=== PATIENT | female | born 1995 | race Caucasian/White ===

== ENCOUNTER 2016-12-01 11:28 | Inpatient (IN) | payer MEDICAID ==
[~2016-12-01] VITALS: Ht 162.6 cm; Wt 47.8 kg
[2016-12-01] MEDS ORDERED: SODIUM CHLORIDE 0.9% 1,000 ML IVB ONE (12:08)
[2016-12-01] MEDS ORDERED: cefTRIAXone 1GM/50ML D5W 50 ML IV ONE (12:15)
[2016-12-01] MEDS ORDERED: KETOROLAC TROMETH 30 MG/ML 1ML VIAL IV ONE (12:15)
[2016-12-01 12:33] LABS: Urine RBC None Seen /hpf (0 - 4)
[2016-12-01 12:45] LABS: Urine Bilirubin Negative (Negative); Urine Blood Negative /uL (Negative); Urine Color Yellow (Yellow); Urine Glucose Normal (Normal); Urine Ketone Negative (Negative); Urine Mucus FEW (None Seen); Urine Nitrite Negative (Negative); Urine Squamous Epithelial Cell FEW /hpf (<5); Urine Urobilinogen Normal (Negative)
[2016-12-01 13:09] LABS: Basophils # (auto) 0.1 uL; Eosinophils # (auto) 0.1 uL; Eosinophils % (auto) 1.8 % (0.0-7.0); Hematocrit 38.3 % (36.0-46.0); Hemoglobin 11.9 g/dL (12.2-16.2); Lymphocytes # (auto) 2.6 uL; Lymphocytes % (auto) 37.2 % (10.0-50.0); Mean Corpuscular Hemoglobin 27.2 pg (28.0-32.0); Mean Corpuscular Hgb Conc. 31.1 g/dL (32.0-36.0); Mean Corpuscular Volume 87.6 fL (80.0-100.0); Monocytes # (auto) 0.4 uL; Monocytes % (auto) 5.9 % (0.0-12.0); Neutrophils # (auto) 3.7 uL; Neutrophils % (auto) 54.1 % (37.0-80.0); Platelet Count (auto) 448 10^3/uL (140-450); Red Cell Distribution Width 12.9 % (11.6-16.0); White Blood Cell 6.9 10^3/uL (4.4-10.8)
[2016-12-01 13:20] LABS: Albumin 3.2 g/dL (3.4-5.0); Alkaline Phosphatase 106 U/L (45-117); Anion Gap 7 (5-15); Aspartate Aminotransferase 21 U/L (15-37); BUN/Creatinine Ratio 19.3; Bilirubin, Total < 0.1 mg/dL (0.2-1.0); Blood Urea Nitrogen 11 mg/dL (7-18); Carbon Dioxide 27 mmol/L (21-32); Chloride 106 mmol/L (98-107); GFR African American 171 mL/min; GFR Non-African American 141 mL/min; Glucose 82 mg/dL (74-106); INR 0.95 (0.9-1.15); Magnesium 2.7 mg/dL (1.6-2.6); Partial Thromboplastin Time 33.6 sec (22.64-33.71); Potassium 3.8 mmol/L (3.5-5.1); Prothrombin Time 9.8 sec (9.37-12.3); Sodium 140 mmol/L (136-145); Total Protein 7.8 g/dL (6.4-8.2)
[2016-12-01] MEDS ORDERED: HYDROcodone-ACET 10/325MG TAB PO ONE (13:45)
[2016-12-01] MEDS ORDERED: CLINDAMYCIN 300MG IV 50 ML IV ONE (14:15)
[2016-12-01] MEDS ORDERED: TEMAZEPAM 15 MG CAP PO PRN (14:30)
[2016-12-01] MEDS ORDERED: ONDANSETRON HCL 4 MG/2 ML VIAL IV PRN (14:30)
[2016-12-01] MEDS ORDERED: DOCUSATE SOD 100 MG CAP PO PRN (14:30)
[2016-12-01] MEDS ORDERED: ACETAMINOPHEN 325 MG TAB PO PRN (14:30)
[2016-12-01] MEDS: MULTIPLE VITAMIN TAB PO SCH (14:43)
[2016-12-01] MEDS: ZINC SULFATE 220 MG CAP PO SCH (14:43)
[2016-12-01 16:51] VITALS: BP 134/91
[2016-12-01 20:00] VITALS: BP 103/59
[2016-12-01] MEDS: SODIUM CHLOR 0.9% PF (SALINE LOCK) 10ML VIAL IV SCH (21:36)
[2016-12-01] MEDS: CLINDAMYCIN 300MG IV 50 ML IV SCH (21:36)
[2016-12-01] MEDS: ASCORBIC ACID 500 MG TAB PO SCH (21:36)
[2016-12-01 21:40] VITALS: BP 103/59
[2016-12-01] MEDS ORDERED: ALPR1TAB2 PO (22:53)
[2016-12-01] MEDS ORDERED: NOR5T PO (22:53)
[2016-12-02 05:16] VITALS: BP 104/59
[2016-12-02] MEDS: MORPHINE SULF INJ 2 MG/ML SYRINGE 1ML IV PRN ×3 (05:34→22:29)
[2016-12-02] MEDS: CLINDAMYCIN 300MG IV 50 ML IV SCH ×3 (05:41→22:07)
[2016-12-02] MEDS: SODIUM CHLOR 0.9% PF (SALINE LOCK) 10ML VIAL IV SCH ×3 (05:41→22:07)
[2016-12-02 06:36] LABS: Basophils # (auto) 0 uL; Basophils % (auto) 0.6 % (0.0-2.0); Eosinophils # (auto) 0.2 uL; Eosinophils % (auto) 2.6 % (0.0-7.0); Hematocrit 37.9 % (36.0-46.0); Lymphocytes # (auto) 2.4 uL; Lymphocytes % (auto) 41.3 % (10.0-50.0); Mean Corpuscular Hemoglobin 27.8 pg (28.0-32.0); Mean Corpuscular Hgb Conc. 31.7 g/dL (32.0-36.0); Mean Corpuscular Volume 87.7 fL (80.0-100.0); Mean Platelet Volume 8.3 fL (7.4-10.4); Monocytes # (auto) 0.3 uL; Monocytes % (auto) 5.8 % (0.0-12.0); Neutrophils # (auto) 2.9 uL; Neutrophils % (auto) 49.7 % (37.0-80.0); Platelet Count (auto) 436 10^3/uL (140-450); Red Cell Distribution Width 13.2 % (11.6-16.0); White Blood Cell 5.9 10^3/uL (4.4-10.8)
[2016-12-02 08:00] VITALS: BP 98/57
[2016-12-02 08:07] LABS: Albumin 2.8 g/dL (3.4-5.0); Alkaline Phosphatase 85 U/L (45-117); Anion Gap 9 (5-15); Aspartate Aminotransferase 21 U/L (15-37); BUN/Creatinine Ratio 15.1; Bilirubin, Total < 0.1 mg/dL (0.2-1.0); Blood Urea Nitrogen 8 mg/dL (7-18); Calcium 8.5 mg/dL (8.5-10.1); Carbon Dioxide 25 mmol/L (21-32); Chloride 110 mmol/L (98-107); GFR African American 186 mL/min; GFR Non-African American 153 mL/min; Glucose 96 mg/dL (74-106); Potassium 3.7 mmol/L (3.5-5.1); Sodium 144 mmol/L (136-145)
[2016-12-02 08:50] VITALS: BP 98/57
[2016-12-02] MEDS: ASCORBIC ACID 500 MG TAB PO SCH ×2 (10:53→22:07)
[2016-12-02] MEDS: cefTRIAXone 1GM/50ML D5W 50 ML IV SCH (10:53)
[2016-12-02] MEDS: ZINC SULFATE 220 MG CAP PO SCH (10:53)
[2016-12-02] MEDS: MULTIPLE VITAMIN TAB PO SCH (10:53)
[2016-12-02 12:55] VITALS: BP 92/55
[2016-12-02] MEDS: HYDROcodone-ACET 5/325MG TAB PO PRN (14:16)
[2016-12-02] MEDS ORDERED: IOHEXOL 300 MG/ML 100ML BOTTLE IJ ONE (16:20)
[2016-12-02 20:00] VITALS: BP 103/60
[2016-12-02 21:58] VITALS: BP 103/60
[2016-12-03 05:23] VITALS: BP 106/70
[2016-12-03] MEDS: CLINDAMYCIN 300MG IV 50 ML IV SCH ×3 (05:38→22:06)
[2016-12-03] MEDS: SODIUM CHLOR 0.9% PF (SALINE LOCK) 10ML VIAL IV SCH ×3 (05:39→22:06)
[2016-12-03] MEDS: MORPHINE SULF INJ 2 MG/ML SYRINGE 1ML IV PRN ×4 (07:42→22:06)
[2016-12-03] MEDS: ZINC SULFATE 220 MG CAP PO SCH (08:33)
[2016-12-03] MEDS: cefTRIAXone 1GM/50ML D5W 50 ML IV SCH (08:33)
[2016-12-03] MEDS: MULTIPLE VITAMIN TAB PO SCH (08:33)
[2016-12-03] MEDS: ASCORBIC ACID 500 MG TAB PO SCH ×2 (08:33→22:06)
[2016-12-03] MEDS ORDERED: VANCOMYCIN PER PHARMACY 0 MG IV SCH (09:30)
[2016-12-03 09:35] VITALS: BP 105/56
[2016-12-03 09:46] LABS: Basophils # (auto) 0 uL; Basophils % (auto) 0.3 % (0.0-2.0); Eosinophils # (auto) 0.1 uL; Eosinophils % (auto) 1.6 % (0.0-7.0); Hemoglobin 12.2 g/dL (12.2-16.2); Lymphocytes # (auto) 2.2 uL; Lymphocytes % (auto) 34.9 % (10.0-50.0); Mean Corpuscular Hemoglobin 27.5 pg (28.0-32.0); Mean Corpuscular Hgb Conc. 32.1 g/dL (32.0-36.0); Mean Corpuscular Volume 85.8 fL (80.0-100.0); Mean Platelet Volume 7.6 fL (7.4-10.4); Monocytes # (auto) 0.3 uL; Monocytes % (auto) 4.8 % (0.0-12.0); Neutrophils # (auto) 3.8 uL; Neutrophils % (auto) 58.4 % (37.0-80.0); Platelet Count (auto) 498 10^3/uL (140-450); Red Cell Distribution Width 12.7 % (11.6-16.0); White Blood Cell 6.4 10^3/uL (4.4-10.8)
[2016-12-03 10:00] LABS: Albumin 3.1 g/dL (3.4-5.0); BUN/Creatinine Ratio 14.3; Bilirubin, Total 0.2 mg/dL (0.2-1.0); Calcium 8.8 mg/dL (8.5-10.1); Total Protein 7.5 g/dL (6.4-8.2)
[2016-12-03] MEDS: MUPIROCIN 2% OINT 22GM EACHNOSTRI SCH ×2 (10:53→22:06)
[2016-12-03] MEDS: VANCOMYCIN 750 MG in D5W 5% 250 ML IV SCH ×2 (10:53→22:56)
[2016-12-03 16:37] VITALS: BP 110/71
[2016-12-03 20:00] VITALS: BP 108/57
[2016-12-03] MEDS: HYDROcodone-ACET 5/325MG TAB PO PRN (20:21)
[2016-12-03 22:00] VITALS: BP 108/57
[2016-12-04 05:10] VITALS: BP 110/58
[2016-12-04] MEDS: CLINDAMYCIN 300MG IV 50 ML IV SCH ×2 (06:05→13:34)
[2016-12-04] MEDS: SODIUM CHLOR 0.9% PF (SALINE LOCK) 10ML VIAL IV SCH ×3 (06:05→21:19)
[2016-12-04] MEDS: MORPHINE SULF INJ 2 MG/ML SYRINGE 1ML IV PRN ×4 (06:46→21:25)
[2016-12-04 08:30] VITALS: BP 112/63
[2016-12-04] MEDS: ZINC SULFATE 220 MG CAP PO SCH (09:05)
[2016-12-04] MEDS: MUPIROCIN 2% OINT 22GM EACHNOSTRI SCH ×2 (09:05→21:14)
[2016-12-04] MEDS: MULTIPLE VITAMIN TAB PO SCH (09:05)
[2016-12-04] MEDS: ASCORBIC ACID 500 MG TAB PO SCH ×2 (09:05→21:14)
[2016-12-04] MEDS: VANCOMYCIN 750 MG in D5W 5% 250 ML IV SCH (10:52)
[2016-12-04 13:00] VITALS: BP 102/56
[2016-12-04 16:30] VITALS: BP 108/70
[2016-12-04] MEDS: HYDROcodone-ACET 5/325MG TAB PO PRN (18:44)
[2016-12-04] MEDS: LINEZOLID 600MG TABLET PO SCH (21:14)
[2016-12-04 21:58] VITALS: BP 103/60
[2016-12-04] MEDS ORDERED: PATIENTS OWN MEDICATION (ZYVOX 600 MG) PO SCH (22:00)
[2016-12-05] MEDS: MORPHINE SULF INJ 2 MG/ML SYRINGE 1ML IV PRN ×2 (04:57→09:21)
[2016-12-05 05:00] VITALS: BP 116/66
[2016-12-05] MEDS: SODIUM CHLOR 0.9% PF (SALINE LOCK) 10ML VIAL IV SCH (06:21)
[2016-12-05] MEDS: LINEZOLID 600MG TABLET PO SCH (09:22)
[2016-12-05] MEDS: MULTIPLE VITAMIN TAB PO SCH (09:22)
[2016-12-05] MEDS: ZINC SULFATE 220 MG CAP PO SCH (09:22)
[2016-12-05] MEDS: ASCORBIC ACID 500 MG TAB PO SCH (09:22)
[2016-12-05] MEDS: MUPIROCIN 2% OINT 22GM EACHNOSTRI SCH (09:23)
[2016-12-05 11:28] VITALS: BP 112/66
== END 2016-12-05 12:01 | disposition home or self-care (01) | DRG 383 ==
LOC: ER 11:29 → OVERFLOW 11:30 → TELE-E-ADS 15:15 → WEST WING 16:11
PROVIDERS: ADMIT Internal Medicine; ATTEND Internal Medicine
DX: L03.114 Cellulitis of left upper limb (principal); E44.1 Mild protein-calorie malnutrition; E83.42 Hypomagnesemia; D50.9 Iron deficiency anemia, unspecified; Z68.1 Body mass index [BMI] 19.9 or less, adult; F17.210 Nicotine dependence, cigarettes, uncomplicated; B95.62 Methicillin resistant Staphylococcus aureus infection as the cause of diseases classified elsewhere; L02.414 Cutaneous abscess of left upper limb; F41.9 Anxiety disorder, unspecified; G89.29 Other chronic pain; Z88.1 Allergy status to other antibiotic agents; Z82.49 Family history of ischemic heart disease and other diseases of the circulatory system
CPT/HCPCS: 36415; 73080; 73201; 76881; 80053; 81001; 81025; 83540; 83735; 85025; 85610; 85730; 87040; 87077; 87081; 87186; 87205; 94761; 96365; 96375; G0434; J0696; J1885; J3490; J7060